=== PATIENT | male | born 1955 | race Caucasian/White ===

== ENCOUNTER → 2017-08-02 | Outpatient (CLI) | payer OTHER ==
[2017-08-02 18:44] LABS: ABSOLUTE BASOPHILS 0.1 thou/uL (0.0-0.2); ABSOLUTE EOSINOPHILS 0.3 thou/uL (0.0-0.7); ABSOLUTE LYMPHOCYTES 0.7 thou/uL (0.8-5.3); ABSOLUTE MONOCYTES 0.8 thou/uL (0.0-1.2); ABSOLUTE NEUTROPHILS 3.8 thou/uL (1.6-8.1); EOSINOPHILS 5.3 %; HEMATOCRIT 34.7 % (42.0-52.0); HEMOGLOBIN 11.4 gm/dL (14.0-18.0); LYMPHOCYTES 12.9 %; MCH 30.6 pg (26.0-34.0); MCV 92.8 fL (80.0-100.0); MONOCYTES 13.3 %; MPV 8.6 fl. (7.2-11.1); NUCLEATED RBCS 0 /100WBC; PLATELET COUNT* 166 thou/uL (150-400); POLYS 67.5 %; RBC 3.73 mil/uL (4.50-6.00); RDW-CV 15.4 % (10.5-14.5); WBC 5.7 thou/uL (4.0-11.0)
[2017-08-02 19:00] LABS: CALCIUM 8.7 mg/dL (8.5-10.1); POTASSIUM 4.5 mmol/L (3.5-5.1)
[2017-08-07 13:09] LABS: GLOBULIN TOTAL 2.6 g/dL (2.2-3.9); M-SPIKE Not Observed g/dL (Not Observed)
[2017-08-07 16:07] LABS: URINE PROTEIN (MG/DL) 20.4 mg/dL (Not Estab.)
== END ==
LOC: M.LAB 18:03
DX: Z01.812 Encounter for preprocedural laboratory examination (principal); R97.20 Elevated prostate specific antigen [PSA]; Z85.9 Personal history of malignant neoplasm, unspecified

== ENCOUNTER 2019-06-05 12:08 | Emergency (ER) | payer BC ==
[~2019-06-05] VITALS: Ht 177.8 cm; Wt 78.0 kg
[2019-06-05] MEDS ORDERED: ECOTRIN325 MG PO (12:27)
[2019-06-05] MEDS ORDERED: LIPITOR40 MG PO (12:27)
[2019-06-05] MEDS ORDERED: CO Q-10100 M1 PO (12:28)
[2019-06-05] MEDS ORDERED: NEURONTIN 300M300 M2 PO (12:28)
[2019-06-05] MEDS ORDERED: CARVEDILOL12.5 MG PO (12:28)
[2019-06-05] MEDS ORDERED: METRONIDAZOLE500 M4 (12:29)
[2019-06-05] MEDS ORDERED: GAS RELIEF80 MG PO (12:31)
[2019-06-05] MEDS ORDERED: MULTI VITAMIN1 EACH PO (12:32)
[2019-06-05 12:36] LABS: URINE BILIRUBIN NEGATIVE (Negative); URINE BLOOD 1+ (Negative); URINE CLARITY CLEAR; URINE COLOR YELLOW; URINE GLUCOSE-RANDOM NEGATIVE (Negative); URINE KETONES NEGATIVE (Negative); URINE LEUKOCYTES-REFLEX NEGATIVE (Negative); URINE NITRITE-REFLEX NEGATIVE (Negative); URINE PROTEIN NEGATIVE (Negative); URINE SPECIFIC GRAVITY 1.025 (1.005-1.030); URINE UROBILINOGEN 0.2 E.U./dl (0.2-1.0)
[2019-06-05 12:43] LABS: ABSOLUTE EOSINOPHILS 0.3 thou/uL (0.0-0.7); ABSOLUTE LYMPHOCYTES 0.7 thou/uL (0.8-5.3); ABSOLUTE MONOCYTES 0.8 thou/uL (0.0-1.2); ABSOLUTE NEUTROPHILS 4.1 thou/uL (1.6-8.1); BASOPHILS 0.5 %; EOSINOPHILS 5.6 %; HEMATOCRIT 37.4 % (42.0-52.0); HEMOGLOBIN 12.9 gm/dL (14.0-18.0); LYMPHOCYTES 11.5 %; MCH 30.1 pg (26.0-34.0); MCHC 34.6 g/dL (28.0-37.0); MCV 87.1 fL (80.0-100.0); MONOCYTES 13.1 %; MPV 8.2 fl. (7.2-11.1); NUCLEATED RBCS 0 /100WBC; PLATELET COUNT* 168 thou/uL (150-400); POLYS 69.3 %; RBC 4.29 mil/uL (4.50-6.00); RDW-CV 14.9 % (10.5-14.5); WBC 5.9 thou/uL (4.0-11.0)
[2019-06-05 12:44] LABS: BACTERIA-REFLEX None Seen /HPF (None Seen); CASTS None Seen /LPF (None Seen); CRYSTALS None Seen /LPF (None Seen); MUCUS 0-3 Light strn/LPF (None Seen); SQUAMOUS NONE SEEN /LPF (0-3); URINE RBC 0-2 Rare /HPF (0-2); URINE WBC-REFLEX None Seen /HPF (0-5)
[2019-06-05] MEDS ORDERED: REGLAN 5 MG TAB5 MG PO (12:48)
[2019-06-05] MEDS ORDERED: CIPRO250 M2 PO (12:49)
[2019-06-05] MEDS ORDERED: PROTONIX40 M2 PO (12:49)
[2019-06-05] MEDS ORDERED: FLAGYL 250 MG250 MG PO (12:49)
[2019-06-05] MEDS ORDERED: FLUCONAZOLE PO (12:50)
[2019-06-05] MEDS ORDERED: ACYCLOVIR 400400 MG PO (12:50)
[2019-06-05] MEDS ORDERED: NYSTATIN-TRIAMC15 GM TOP (12:51)
[2019-06-05] MEDS ORDERED: NITROSTAT0.4 M1 SUBLING (12:51)
[2019-06-05] MEDS ORDERED: XIFAXAN550 M1 PO (12:51)
[2019-06-05] MEDS ORDERED: PERTZYE DR 24,1 EACH PO ×2 (12:52)
[2019-06-05] MEDS ORDERED: COLESTID1 GM PO (12:53)
[2019-06-05] MEDS ORDERED: TRESIBA FL200 UNIT/1 SUBQ (12:53)
[2019-06-05] MEDS ORDERED: NOVOLOG100 UNIT/M SUBQ (12:54)
[2019-06-05] MEDS ORDERED: DICYCLOMINE HCL20 MG PO (12:55)
[2019-06-05] MEDS ORDERED: FLONASE 0.05%50 MCG NASAL (12:55)
[2019-06-05] MEDS ORDERED: FLONASE 0.05%50 MCG NARES (12:56)
[2019-06-05] MEDS ORDERED: NORCO 5-325 TA1 EAC1 PO (12:56)
[2019-06-05] MEDS ORDERED: RESTORIL15 M1 PO (12:57)
[2019-06-05] MEDS ORDERED: FLEXERIL PO (12:57)
[2019-06-05] MEDS ORDERED: PROBIOTIC1 EAC6 PO (12:58)
[2019-06-05 12:59] LABS: CALCIUM 8.3 mg/dL (8.5-10.1); CREATININE 0.7 mg/dL (0.6-1.3); POTASSIUM 4.2 mmol/L (3.5-5.1)
[2019-06-05 13:03] LABS: ALBUMIN 3.5 g/dL (3.4-5.0); TOTAL BILIRUBIN 0.5 mg/dL (<0.1-1.0); TOTAL PROTEIN 6.8 g/dL (6.4-8.2)
[2019-06-05 15:35] VITALS: BP 130/63
== END 2019-06-05 15:35 | disposition home or self-care (01) ==
LOC: M.ERS 12:08
PROVIDERS: Physician Assistant
DX: R10.84 Generalized abdominal pain (principal); R10.32 Left lower quadrant pain; Z85.46 Personal history of malignant neoplasm of prostate; Z95.2 Presence of prosthetic heart valve; Z85.07 Personal history of malignant neoplasm of pancreas

== ENCOUNTER 2021-03-20 03:08 | Emergency (ER) | payer OTHER ==
[~2021-03-20] VITALS: Ht 177.8 cm; Wt 61.2 kg
[~2021-03-20 03:08] MED LIST: ACYCLOVIR 400400 MG PO; CARVEDILOL12.5 MG PO; CIPRO250 M2 PO; CO Q-10100 M1 PO; COLESTID1 GM PO; DICYCLOMINE HCL20 MG PO; ECOTRIN325 MG PO; FLAGYL 250 MG250 MG PO; FLEXERIL PO; FLONASE 0.05%50 MCG NARES; FLONASE 0.05%50 MCG NASAL; FLUCONAZOLE PO; GAS RELIEF80 MG PO; LIPITOR40 MG PO; METRONIDAZOLE500 M4; MULTI VITAMIN1 EACH PO; NEURONTIN 300M300 M2 PO; NITROSTAT0.4 M1 SUBLING; NORCO 5-325 TA1 EAC1 PO; NOVOLOG100 UNIT/M SUBQ; NYSTATIN-TRIAMC15 GM TOP; PERTZYE DR 24,1 EACH PO; PROBIOTIC1 EAC6 PO; PROTONIX40 M2 PO; REGLAN 5 MG TAB5 MG PO; RESTORIL15 M1 PO; TRESIBA FL200 UNIT/1 SUBQ; XIFAXAN550 M1 PO
[2021-03-20] MEDS ORDERED: FENTANYL1 EACH TRANSDERM (03:31)
[2021-03-20] MEDS ORDERED: XTAMPZA ER18 MG PO (03:31)
[2021-03-20 04:08] LABS: HEMOGLOBIN 10.2 gm/dL (14.0-18.0); MCH 33.2 pg (26.0-34.0); MCV 97.7 fL (80.0-100.0); NUCLEATED RBCS 0 /100WBC; PLATELET COUNT* 268 thou/uL (150-400); RBC 3.07 mil/uL (4.50-6.00); RDW-CV 14.2 % (10.5-14.5); WBC 6.4 thou/uL (4.0-11.0)
[2021-03-20 04:22] LABS: CALCIUM 8.4 mg/dL (8.5-10.1); CREATININE 0.7 mg/dL (0.6-1.3)
[2021-03-20 04:24] LABS: APTT 24.7 Seconds (25.0-31.3); INR 1.2; PROTIME 11.9 Seconds (9.20-11.50)
[2021-03-20 04:26] LABS: ALBUMIN 2.9 g/dL (3.4-5.0); TOTAL BILIRUBIN 0.5 mg/dL (<0.1-1.0); TOTAL PROTEIN 6.5 g/dL (6.4-8.2)
[2021-03-20 05:35] LABS: ABSOLUTE LYMPHOCYTES 0.3 thou/uL (0.8-5.3); ABSOLUTE MONOCYTES 0.4 thou/uL (0.0-1.2); ABSOLUTE NEUTROPHILS 5.6 thou/uL (1.6-8.1); PLATELET ESTIMATE ADEQUATE
[2021-03-20 06:08] LABS: URINE BILIRUBIN NEGATIVE (Negative); URINE BLOOD NEGATIVE (Negative); URINE CLARITY CLEAR; URINE COLOR YELLOW; URINE GLUCOSE-RANDOM NEGATIVE (Negative); URINE KETONES NEGATIVE (Negative); URINE LEUKOCYTES-REFLEX NEGATIVE (Negative); URINE NITRITE-REFLEX NEGATIVE (Negative); URINE PROTEIN NEGATIVE (Negative); URINE SPECIFIC GRAVITY 1.025 (1.005-1.030); URINE UROBILINOGEN 0.2 E.U./dl (0.2-1.0)
[2021-03-20 06:15] LABS: AMP/METHAMP Negative (Negative); BARBITURATES Negative (Negative); BENZODIAZEPINES Negative (Negative); COCAINE Negative (Negative); METHADONE Negative (Negative); OPIATES Negative (Negative); PCP Negative (Negative); THC Negative (Negative)
[2021-03-20] MEDS ORDERED: AUGMENTIN 500-1 EACH PO (06:18)
[2021-03-20 06:31] VITALS: BP 147/81
--- NOTE | 2021-03-21 11:07 | EKG ---
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
== END 2021-03-20 06:31 | disposition home or self-care (01) ==
LOC: M.ERS 03:08
PROVIDERS: Personal Emergency Response Attendant
DX: K52.9 Noninfective gastroenteritis and colitis, unspecified (principal); K56.7 Ileus, unspecified; R11.2 Nausea with vomiting, unspecified; R10.12 Left upper quadrant pain; Z90.49 Acquired absence of other specified parts of digestive tract; Z79.82 Long term (current) use of aspirin; Z79.899 Other long term (current) drug therapy